=== PATIENT | male | born 1995 | race Two or more races ===

== ENCOUNTER 2019-04-21 23:03 | Emergency (ER) | payer SELFPAY ==
[~2019-04-21] VITALS: Ht 165.1 cm; Wt 68.0 kg
[2019-04-21 23:13] VITALS: BP 128/80
--- NOTE | 2019-04-21 23:25 | NUR ---
ED Nurse Note: PT IS AAOX4, VSS, UNCOOPERATIVE, AND STABLE. PT HAS HEADACHE NOW AFTER BEING ASSUALTED. NO SKIN ISSUES NOTED. PATIENT HAS BEEN BROUGHT IN BY [facility] FOR MEDICAL CLEARENCE
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
[2019-04-22] VITALS: BP 119/85
--- NOTE | 2019-04-22 | NUR ---
ED Nurse Note: PT IS ACTING AGITATIED AND PACING.
--- NOTE | 2019-04-22 00:42 | Diagnostic Imaging Report ---
EXAM: CT Head Without Intravenous Contrast CLINICAL HISTORY: Injury TECHNIQUE: Axial computed tomography images of the head brain without intravenous contrast. CTDI is 60 mGy and DLP is 1334.1 mGy-cm. One or more of the following dose reduction techniques were used: automated exposure control, adjustment of the mA and or kV according to patient size, use of iterative reconstruction technique. COMPARISON: No relevant prior studies available. FINDINGS: Brain: Unremarkable. No acute hemorrhage, large hypodensity, or significant mass effect. Ventricles: Unremarkable. No ventriculomegaly. Bones joints: Unremarkable. No acute fracture. Soft tissues: Unremarkable. Sinuses: Unremarkable. Mastoid air cells: Unremarkable. IMPRESSION: No acute intracranial hemorrhage or calvarial fracture.
[2019-04-22] MEDS ORDERED: IBUPROFEN600 MG ORAL (00:47)
--- NOTE | 2019-04-22 00:49 | Diagnostic Imaging Report ---
EXAM: XR Left Hip With Pelvis When Performed, 2 or 3 Views CLINICAL HISTORY: INJ TECHNIQUE: Two or three views of the left hip with pelvis when performed. COMPARISON: No relevant prior studies available. FINDINGS: Bones joints: No acute fracture or dislocation. Soft tissues: Unremarkable. IMPRESSION: No acute fracture or dislocation.
[2019-04-22 00:50] VITALS: BP 141/85
--- NOTE | 2019-04-22 00:50 | NUR ---
ER DISCHARGE NOTE: Patient is cleared to be discharged per ERMD, pt is aox4, on room air, with stable vital signs. pt was given dc and prescription instructions, pt was able to verbalize understanding, pt id band. pt is able to ambulate with steady gait. pt took all belongings. Pt states pain is 3/10. 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
== END 2019-04-22 00:50 ==
LOC: EMR 23:25
DX: S09.90XA Unspecified injury of head, initial encounter (principal); S70.02XA Contusion of left hip, initial encounter; S00.93XA Contusion of unspecified part of head, initial encounter; Y35.93XA Legal intervention, means unspecified, suspect injured, initial encounter; Y92.9 Unspecified place or not applicable
CPT/HCPCS: 70450; 73502; 99284